=== PATIENT | female | born 2000 | race African-American/Black ===

== ENCOUNTER 2019-07-07 09:50 | Emergency (ER) | payer OTHER ==
[~2019-07-07] VITALS: Ht 167.6 cm; Wt 136.1 kg
[2019-07-07 10:28] LABS: ABSOLUTE BASOPHILS 0.1 thou/uL (0.0-0.2); ABSOLUTE EOSINOPHILS 0.1 thou/uL (0.0-0.7); ABSOLUTE MONOCYTES 0.6 thou/uL (0.0-1.2); ABSOLUTE NEUTROPHILS 2.6 thou/uL (1.6-8.1); BASOPHILS 1.5 %; EOSINOPHILS 1.3 %; HEMATOCRIT 34.4 % (37.0-47.0); HEMOGLOBIN 11.2 gm/dL (12.0-15.0); LYMPHOCYTES 37.5 %; MCH 24.9 pg (26.0-34.0); MCHC 32.5 g/dL (28.0-37.0); MCV 76.4 fL (80.0-100.0); MONOCYTES 11.8 %; NUCLEATED RBCS 0 /100WBC; PLATELET COUNT* 268 thou/uL (150-400); POLYS 47.9 %; RDW-CV 17.1 % (10.5-14.5); WBC 5.4 thou/uL (4.0-11.0)
[2019-07-07 10:31] LABS: URINE BILIRUBIN NEGATIVE (Negative); URINE BLOOD NEGATIVE (Negative); URINE CLARITY CLEAR; URINE COLOR YELLOW; URINE GLUCOSE-RANDOM NEGATIVE (Negative); URINE KETONES NEGATIVE (Negative); URINE LEUKOCYTES-REFLEX NEGATIVE (Negative); URINE NITRITE-REFLEX NEGATIVE (Negative); URINE PROTEIN NEGATIVE (Negative); URINE SPECIFIC GRAVITY 1.015 (1.005-1.030); URINE UROBILINOGEN 0.2 E.U./dl (0.2-1.0)
[2019-07-07 10:41] LABS: CALCIUM 9.6 mg/dL (8.5-10.1); CREATININE 0.9 mg/dL (0.6-1.3); POTASSIUM 4.2 mmol/L (3.5-5.1)
[2019-07-07 10:57] LABS: INFLUENZA A ANTIGEN Negative (Negative); INFLUENZA B ANTIGEN Negative (Negative)
[2019-07-07] MEDS ORDERED: IRON325 PO (11:41)
[2019-07-07] MEDS ORDERED: MEDROLDOSEPACK PO (11:41)
[2019-07-07] MEDS ORDERED: PROAIR HFA8.5 GM INH (11:41)
[2019-07-07 11:57] VITALS: BP 113/73
--- NOTE | 2019-07-07 16:09 | EKG ---
[place] [address] ELECTROCARDIOGRAM REPORT Name: CARLOS RODRIGUEZ [id number] Admission: 07/07/19 Attend Phys: Discharge: 07/07/19 Date of : [birth year] Report #: [id number] THIS REPORT FOR: //name// [facility] ED Test Date: 2019-07-07 Test Time: 10:01:28 Pat Name: CARLOS RODRIGUEZ Department: Room: Gender: F Package Handler: : 2000 Requested By: Quintin Salmeron Order Number: [id number] MD: John Horton Measurements Intervals [place] Rate: 69 P: 62 AL: 167 QRS: 69 QRSD: 102 T: 34 QT: 438 QTc: 470 Interpretive Statements Sinus arrhytmia No previous ECG available for comparison Electronically Signed On 07-07-2019 16:09:14 [employer]NATIVE [employer] TECHNICIAN by John Horton [email or web address] <ELECTRONICALLY SIGNED> By: John Horton MD, LOCATED WITHIN [facility] 07/07/19 1609 1001 1001 John Horton MD, FACC /EPI
== END 2019-07-07 11:58 | disposition home or self-care (01) ==
LOC: M.ERS 09:50
PROVIDERS: Nurse Practitioner Psychiatric/Mental Health
DX: J45.909 Unspecified asthma, uncomplicated (principal); D64.9 Anemia, unspecified; R42 Dizziness and giddiness; Z88.8 Allergy status to other drugs, medicaments and biological substances

== ENCOUNTER 2019-07-21 09:33 | Emergency (ER) | payer OTHER ==
[~2019-07-21] VITALS: Ht 167.6 cm; Wt 136.1 kg
[~2019-07-21 09:33] MED LIST: IRON325 PO; MEDROLDOSEPACK PO; PROAIR HFA8.5 GM INH
[2019-07-21 10:34] LABS: INFLUENZA A ANTIGEN Negative (Negative); INFLUENZA B ANTIGEN Negative (Negative)
[2019-07-21] MEDS ORDERED: FLONASE 0.05%50 MCG NARES (11:20)
[2019-07-21] MEDS ORDERED: AUGMENTIN 875-1 EACH PO (11:20)
[2019-07-21] MEDS ORDERED: PULMICORT FLEX90 MCG INH (11:22)
[2019-07-21 11:55] VITALS: BP 149/81
== END 2019-07-21 11:56 | disposition home or self-care (01) ==
LOC: M.ERS 09:33
PROVIDERS: Nurse Practitioner Family
DX: J01.90 Acute sinusitis, unspecified (principal); J45.909 Unspecified asthma, uncomplicated; R04.0 Epistaxis; Z88.8 Allergy status to other drugs, medicaments and biological substances

== ENCOUNTER 2019-11-27 08:18 | Emergency (ER) | payer MEDICAID ==
[~2019-11-27] VITALS: Ht 167.6 cm; Wt 136.1 kg
[~2019-11-27 08:18] MED LIST changes: +AUGMENTIN 875-1 EACH PO; +FLONASE 0.05%50 MCG NARES; +PULMICORT FLEX90 MCG INH
[2019-11-27] MEDS ORDERED: IBUPROFEN 600600 M1 PO (08:57)
[2019-11-27] MEDS ORDERED: CYCLOBENZAPRINE5 MG PO (08:57)
[2019-11-27 09:20] VITALS: BP 139/85
== END 2019-11-27 09:20 | disposition home or self-care (01) ==
LOC: M.ERS 08:18
DX: S46.812A Strain of other muscles, fascia and tendons at shoulder and upper arm level, left arm, initial encounter (principal); J45.909 Unspecified asthma, uncomplicated; Z88.8 Allergy status to other drugs, medicaments and biological substances; X50.0XXA Overexertion from strenuous movement or load, initial encounter; Y93.72 Activity, wrestling; Y92.89 Other specified places as the place of occurrence of the external cause; Y99.8 Other external cause status

== ENCOUNTER 2020-04-07 09:06 | Emergency (ER) | payer MEDICAID ==
[~2020-04-07] VITALS: Ht 162.6 cm; Wt 146.5 kg
[~2020-04-07 09:06] MED LIST changes: +CYCLOBENZAPRINE5 MG PO; +IBUPROFEN 600600 M1 PO
[2020-04-07 09:34] LABS: URINE BILIRUBIN NEGATIVE (Negative); URINE BLOOD 3+ (Negative); URINE CLARITY CLOUDY; URINE COLOR RED; URINE GLUCOSE-RANDOM NEGATIVE (Negative); URINE KETONES NEGATIVE (Negative); URINE LEUKOCYTES-REFLEX NEGATIVE (Negative); URINE NITRITE-REFLEX NEGATIVE (Negative); URINE PROTEIN 3+ (Negative); URINE SPECIFIC GRAVITY >= 1.030 (1.005-1.030); URINE UROBILINOGEN 0.2 E.U./dl (0.2-1.0)
[2020-04-07 09:41] LABS: SQUAMOUS >10 Many /LPF (0-3)
[2020-04-07 09:45] LABS: BACTERIA-REFLEX 1-9 Few /HPF (None Seen); CASTS None Seen /LPF (None Seen); CRYSTALS None Seen /LPF (None Seen); MUCUS None Seen strn/LPF (None Seen); URINE RBC >20 Many /HPF (0-2); URINE WBC-REFLEX 0-5 Rare /HPF (0-5)
[2020-04-07 09:57] LABS: ABSOLUTE EOSINOPHILS 0.1 thou/uL (0.0-0.7); ABSOLUTE LYMPHOCYTES 1.7 thou/uL (0.8-5.3); ABSOLUTE MONOCYTES 0.5 thou/uL (0.0-1.2); ABSOLUTE NEUTROPHILS 2.4 thou/uL (1.6-8.1); BASOPHILS 0.8 %; EOSINOPHILS 1.2 %; HEMATOCRIT 33.4 % (37.0-47.0); HEMOGLOBIN 10.7 gm/dL (12.0-15.0); LYMPHOCYTES 36.9 %; MCH 23.3 pg (26.0-34.0); MCHC 31.9 g/dL (28.0-37.0); MCV 73.1 fL (80.0-100.0); MPV 8.5 fl. (7.2-11.1); NUCLEATED RBCS 0 /100WBC; PLATELET COUNT* 283 thou/uL (150-400); POLYS 51.1 %; RBC 4.58 mil/uL (4.20-5.00); RDW-CV 17.5 % (10.5-14.5); WBC 4.7 thou/uL (4.0-11.0)
[2020-04-07 10:14] LABS: CALCIUM 8.6 mg/dL (8.5-10.1); CREATININE 0.8 mg/dL (0.6-1.3)
[2020-04-07 10:19] LABS: ALBUMIN 3.4 g/dL (3.4-5.0); TOTAL BILIRUBIN 0.2 mg/dL (<0.1-1.0); TOTAL PROTEIN 7.1 g/dL (6.4-8.2)
[2020-04-07 12:21] VITALS: BP 130/77
== END 2020-04-07 12:21 | disposition home or self-care (01) ==
LOC: M.ERS 09:06
PROVIDERS: Family Medicine
DX: N94.6 Dysmenorrhea, unspecified (principal); J45.909 Unspecified asthma, uncomplicated; Z88.8 Allergy status to other drugs, medicaments and biological substances

== ENCOUNTER 2020-05-24 22:58 | Emergency (ER) | payer MEDICAID ==
[~2020-05-24] VITALS: Ht 165.1 cm; Wt 154.7 kg
[2020-05-24] MEDS ORDERED: KETOROLAC 0.5% E5 ML OPHTHALMIC (23:51)
[2020-05-24] MEDS ORDERED: CIPROFLOXIN HC2.5 M1 OPHTHALMIC (23:51)
[2020-05-25] VITALS: BP 149/94
== END 2020-05-25 | disposition home or self-care (01) ==
LOC: M.ERS 22:58
DX: H57.89 Other specified disorders of eye and adnexa (principal); J45.909 Unspecified asthma, uncomplicated; Z88.8 Allergy status to other drugs, medicaments and biological substances

== ENCOUNTER 2020-08-12 19:57 | Emergency (ER) | payer MEDICAID ==
[~2020-08-12] VITALS: Ht 165.1 cm; Wt 136.1 kg
[~2020-08-12 19:57] MED LIST changes: +CIPROFLOXIN HC2.5 M1 OPHTHALMIC; +KETOROLAC 0.5% E5 ML OPHTHALMIC
[2020-08-12 21:32] VITALS: BP 130/70
== END 2020-08-12 21:32 | disposition home or self-care (01) ==
LOC: M.ERS 19:57
DX: S93.491A Sprain of other ligament of right ankle, initial encounter (principal); J45.909 Unspecified asthma, uncomplicated; X50.9XXA Other and unspecified overexertion or strenuous movements or postures, initial encounter; Y93.89 Activity, other specified; Y92.89 Other specified places as the place of occurrence of the external cause; Y99.8 Other external cause status

== ENCOUNTER 2021-02-17 19:30 | Emergency (ER) | payer MEDICAID ==
[~2021-02-17] VITALS: Ht 165.1 cm; Wt 154.2 kg
[2021-02-17 19:35] VITALS: BP 155/98
--- NOTE | 2021-02-18 10:07 | EKG ---
[place] [address] ELECTROCARDIOGRAM REPORT Name: CARLOS RODRIGUEZ [facility] [id number] Admission: 02/17/21 Attend Phys: Discharge: 02/17/21 Date of : [birth year] Date of Service: 02/17/211942 Report #: [id number] THIS REPORT FOR: //name// [facility] ED Test Date: 2021-02-17 Test Time: 19:43:40 Pat Name: CARLOS RODRIGUEZ Department: Room: Gender: F Director Veterinary: MR : 2000 Requested By: Francoise Norman Order Number: [id number] MD: John Horton Measurements Intervals [place] Rate: 81 P: 64 [place]: 154 QRS: 60 QRSD: 101 T: 3 QT: 370 QTc: 430 Interpretive Statements Sinus arrhythmia Baseline wander in lead(s) I,II,aVR,aVL,V1,V2,V3,V4,V5,V6 Compared to ECG 07/07/2019 10:01:28 No significant changes Electronically Signed On 02-18-2021 10:06:56 CDT by John Horton [email or web address] <ELECTRONICALLY SIGNED> By: John Horton MD, FAC 02/18/21 1006 42 42 John Horton MD, [facility] /EPI
== END 2021-02-17 21:36 | disposition left against medical advice (07) ==
LOC: M.ERS 19:30
DX: R07.89 Other chest pain (principal); Z20.822 Contact with and (suspected) exposure to COVID-19; J45.909 Unspecified asthma, uncomplicated; Z53.21 Procedure and treatment not carried out due to patient leaving prior to being seen by health care provider; Z88.8 Allergy status to other drugs, medicaments and biological substances

== ENCOUNTER 2021-03-23 01:16 | Emergency (ER) | payer MEDICAID ==
[~2021-03-23] VITALS: Ht 167.6 cm; Wt 142.9 kg
[2021-03-23 01:51] LABS: URINE BILIRUBIN NEGATIVE (Negative); URINE BLOOD NEGATIVE (Negative); URINE CLARITY CLEAR; URINE COLOR YELLOW; URINE GLUCOSE-RANDOM NEGATIVE (Negative); URINE KETONES NEGATIVE (Negative); URINE LEUKOCYTES-REFLEX NEGATIVE (Negative); URINE NITRITE-REFLEX NEGATIVE (Negative); URINE PROTEIN NEGATIVE (Negative); URINE UROBILINOGEN 0.2 E.U./dl (0.2-1.0)
[2021-03-23 03:54] VITALS: BP 145/80
== END 2021-03-23 03:55 | disposition home or self-care (01) ==
LOC: M.ERS 01:16
PROVIDERS: Emergency Medicine
DX: R06.00 Dyspnea, unspecified (principal); Z20.822 Contact with and (suspected) exposure to COVID-19; J45.909 Unspecified asthma, uncomplicated; I10 Essential (primary) hypertension; Z88.8 Allergy status to other drugs, medicaments and biological substances

== ENCOUNTER 2021-06-16 18:59 | Emergency (ER) | payer MEDICAID ==
[~2021-06-16] VITALS: Ht 165.1 cm; Wt 129.3 kg
[2021-06-16 19:25] LABS: URINE BILIRUBIN NEGATIVE (Negative); URINE BLOOD 1+ (Negative); URINE CLARITY CLEAR; URINE COLOR YELLOW; URINE GLUCOSE-RANDOM NEGATIVE (Negative); URINE KETONES NEGATIVE (Negative); URINE LEUKOCYTES-REFLEX NEGATIVE (Negative); URINE NITRITE-REFLEX NEGATIVE (Negative); URINE PROTEIN TRACE (Negative); URINE SPECIFIC GRAVITY >= 1.030 (1.005-1.030); URINE UROBILINOGEN 0.2 E.U./dl (0.2-1.0)
[2021-06-16 19:48] LABS: BACTERIA-REFLEX 1-9 Few /HPF (None Seen); CASTS None Seen /LPF (None Seen); CRYSTALS None Seen /LPF (None Seen); MUCUS 0-3 Light strn/LPF (None Seen); SQUAMOUS >10 Many /LPF (0-3); URINE RBC 3-10 Few /HPF (0-2); URINE WBC-REFLEX 0-5 Rare /HPF (0-5)
[2021-06-16] MEDS ORDERED: TRAMADOL 50 MG50 MG PO (19:59)
[2021-06-16] MEDS ORDERED: FLEXERIL PO (19:59)
[2021-06-16] MEDS ORDERED: MEDROLDOSEPACK PO (19:59)
[2021-06-16 20:10] VITALS: BP 152/97
== END 2021-06-16 20:11 | disposition home or self-care (01) ==
LOC: M.ERS 18:59
PROVIDERS: Emergency Medicine
DX: M54.59 Other low back pain (principal); J45.909 Unspecified asthma, uncomplicated; I10 Essential (primary) hypertension; Z88.8 Allergy status to other drugs, medicaments and biological substances

== ENCOUNTER 2021-08-17 02:23 | Emergency (ER) | payer MEDICAID ==
[~2021-08-17] VITALS: Ht 165.1 cm; Wt 156.5 kg
[~2021-08-17 02:23] MED LIST changes: +FLEXERIL PO; +TRAMADOL 50 MG50 MG PO
[2021-08-17] MEDS ORDERED: PROAIR HFA8.5 GM INH (02:40)
[2021-08-17] MEDS ORDERED: ALBUTEROL2.5 MG/31 INH (03:48)
[2021-08-17] MEDS ORDERED: NEBULIZER MISCELL (03:48)
[2021-08-17] MEDS ORDERED: MEDROLDOSEPACK PO (03:48)
[2021-08-17 04:08] VITALS: BP 122/89
== END 2021-08-17 04:09 | disposition home or self-care (01) ==
LOC: M.ERS 02:23
DX: J45.901 Unspecified asthma with (acute) exacerbation (principal); I10 Essential (primary) hypertension; Z79.899 Other long term (current) drug therapy; Z88.8 Allergy status to other drugs, medicaments and biological substances